=== PATIENT | male | born 1975 | race African-American/Black ===

== ENCOUNTER 2024-02-24 13:48 | Emergency (ER) | payer MEDICAID, OTHER ==
[~2024-02-24] VITALS: Ht 180.3 cm; Wt 88.3 kg
[2024-02-24 14:00] VITALS: BP 132/96; PULSE 103; RESP 18; O2SAT 100
[2024-02-24 15:34] LABS: Basophils # (auto) 0 10 ^3/uL (0-0.2); Basophils % (auto) 0.7 % (0.0-2.0); Eosinophils # (auto) 0.1 10 ^3/uL (0-0.8); Eosinophils % (auto) 3.1 % (0.0-7.0); Hematocrit 39.3 % (41.0-53.0); Lymphocytes # (auto) 1.4 10 ^3/uL (0.4-5.4); Lymphocytes % (auto) 39.7 % (10.0-50.0); Mean Corpuscular Hemoglobin 29.5 pg (28.0-32.0); Mean Corpuscular Hgb Conc. 32.9 g/dL (32.0-36.0); Mean Corpuscular Volume 89.5 fL (80.0-100.0); Monocytes # (auto) 0.3 10 ^3/uL (0-1.3); Monocytes % (auto) 9.7 % (0.0-12.0); Neutrophils # (auto) 1.6 10 ^3/uL (1.6-8.6); Neutrophils % (auto) 46.8 % (37.0-80.0); Nucleated Red Blood Cells % 0.1 %; Platelet Count (auto) 205 10^3/uL (140-450); Red Blood Cells 4.39 10^6/uL (4.5-5.90); Red Cell Distribution Width 14.3 % (11.8-14.3); White Blood Cell 3.5 10^3/uL (4.4-10.8)
[2024-02-24 15:46] LABS: Chloride 109 mmol/L (98-107); Potassium 4.1 mmol/L (3.5-5.1); Sodium 144 mmol/L (136-145)
[2024-02-24 15:47] LABS: Anion Gap 3 (5-15); Carbon Dioxide 32 mmol/L (20-31)
[2024-02-24 15:52] LABS: BUN/Creatinine Ratio 13.3 (10.0-20.0); Blood Urea Nitrogen 10 mg/dL (9-23); Glucose 87 mg/dL (74-106)
== END 2024-02-24 22:25 | disposition left against medical advice (07) ==
LOC: ER 13:48
DX: F20.9 Schizophrenia, unspecified (principal); F31.9 Bipolar disorder, unspecified; F12.90 Cannabis use, unspecified, uncomplicated; Z59.00 Homelessness unspecified
CPT/HCPCS: 36415; 80048; 84484; 85025

== ENCOUNTER 2024-02-25 07:01 | Emergency (ER) | payer MEDICAID ==
[~2024-02-25] VITALS: Ht 180.3 cm; Wt 88.0 kg
[2024-02-25] MEDS: HYDROcodone-ACET 5/325MG TAB PO ONE (09:37)
[2024-02-25] MEDS: IBUPROFEN 400 MG TAB PO ONE (17:48)
[2024-02-25 23:00] VITALS: PULSE 87; RESP 14; TEMP 98.2; O2SAT 97
[2024-02-26 07:30] VITALS: BP 123/78; PULSE 68; RESP 18; O2SAT 99
== END 2024-02-26 10:52 | disposition left against medical advice (07) ==
LOC: ER 07:01
DX: F20.9 Schizophrenia, unspecified (principal); G89.4 Chronic pain syndrome; R45.851 Suicidal ideations; F32.9 Major depressive disorder, single episode, unspecified; F15.90 Other stimulant use, unspecified, uncomplicated; Z59.00 Homelessness unspecified